=== PATIENT | male | born 1980 | race American Indian/Alaskan Native ===

== ENCOUNTER 2017-01-20 17:37 | Emergency (ER) | payer SELFPAY ==
[2017-01-20 17:43] VITALS: RESP 14; O2SAT 99
[2017-01-20] MEDS ORDERED: Sodium Chloride 0.9% 1,000 ML IV STA (18:10)
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
[2017-01-20 19:02] LABS: BASO % 0.5 % (0.0-2.0); EOS # 0.1 K/uL (0.0-0.7); EOS % 0.9 % (0.0-4.0); HEMATOCRIT 42.6 % (35.0-51.0); LYMPH # 2.2 K/uL (1.0-4.3); MEAN CELL VOLUME 88.2 fl (80.0-94.0); MEAN CORPUSCULAR HEMOGLOBIN 28.9 pg (27.0-31.0); MEAN CORPUSCULAR HGB CONC 32.8 g/dL (33.0-37.0); MEAN PLATELET VOLUME 7.5 fl (7.2-11.7); MONO # 0.6 K/uL (0.0-0.8); NEUT # 4.7 K/uL (1.8-7.0); NEUT % 61.6 % (50.0-75.0); NRBC % 0.1 % (0.0-0.0); RED CELL DISTRIBUTION WIDTH 12.6 % (11.5-14.5); WHITE BLOOD COUNT 7.7 K/uL (4.8-10.8)
[2017-01-20 19:11] LABS: ALB/GLOB RATIO 1.3 (1.0-2.1); ALKALINE PHOSPHATASE 90 U/L (38-126); ALT/SGPT 39 U/L (21-72); AST/SGOT 35 U/L (17-59); BILIRUBIN,TOTAL 0.4 mg/dl (0.2-1.3); BLOOD UREA NITROGEN 13 mg/dl (9-20); CALCIUM 9.5 mg/dL (8.4-10.2); CARBON DIOXIDE 22 mmol/L (22-30); CHLORIDE 105 mmol/L (98-107); GFR AFRICAN-AMERICAN > 60; GLUCOSE,RANDOM 85 mg/dL (75-110); POTASSIUM 3.7 MMOL/L (3.6-5.0); SODIUM 143 mmol/l (132-148); TOTAL PROTEIN 7.9 G/DL (6.3-8.2)
[2017-01-20 19:21] LABS: RBC URINE 3 /hpf (0-3); URINE BILIRUBIN NEGATIVE (NEGATIVE); URINE BLOOD NEGATIVE (NEGATIVE); URINE COLOR YELLOW (YELLOW); URINE GLUCOSE (UA) NEG (Normal); URINE KETONE TRACE mg/dL (NEGATIVE); URINE LEUKOCYTE ESTERASE NEG Leu/uL (Negative); URINE PROTEIN NEGATIVE (NEGATIVE); URINE UROBILINOGEN 0.2-1.0 mg/dL (0.2-1.0); WBC URINE < 1 /hpf (0-5)
--- NOTE | 2017-01-20 19:25 | ED PDOC ---
- Laboratory Results Result Diagrams: 01/20/17 18:25 01/20/17 18:52 - ECG O2 Sat by Pulse Oximetry: 99 (RA) Medical Decision Making Medical Decision Makin:00 Patient signed over to me by Dr. Alva pending labs. 20:30 Patient pending labs. Ordered crisis evaluation. 21:30 Labs reviewed, no clinically significant abnormalities. Patient has of minimal elevation of creatinine phosphokinase, likely related to prolonged physical exertion. Patient was evaluated by crisis, who also found patient stable for discharge. Patient is now medically and psychiatrically cleared for incarceration. Clinical Impression: Dehydration Scribe Attestation: Documented by Nydia Maldonado, acting as a scribe for Jae Castrejon MD. Provider Scribe Attestation: All medical record entries made by the Scribe were at my direction and personally dictated by me. I have reviewed the chart and agree that the record accurately reflects my personal performance of the history, physical exam, medical decision making, and the department course for this patient. I have also personally directed, reviewed, and agree with the discharge instructions and disposition. Disposition - Clinical Impression Clinical Impression: Excessive physical exertion from prolonged activity, Examination, medicolegal reason, Dehydration - POA Present On Arrival: None - Disposition Disposition: Discharged/Transfer to Law Enforcement Disposition Time: 21:30 Condition: STABLE Additional Instructions: Patient is medically and psychiatrically stable for incarceration Instructions: Dehydration (ED) Forms: Simple-Fill (Malaysian)
[2017-01-20 22:19] VITALS: BP 116/60; PULSE 54; TEMP 98.2
== END 2017-01-20 21:49 ==
LOC: H.ER 17:37
DX: E86.0 Dehydration (principal); Z02.89 Encounter for other administrative examinations
CPT/HCPCS: 80053; 81003; 82550; 82948; 85025; 96360; 99282; G0480; J7040